=== PATIENT | male | born 1995 | race African-American/Black ===

== ENCOUNTER 2021-07-18 11:37 | Emergency (ER) | payer OTHER ==
[~2021-07-18] VITALS: Ht 188 cm; Wt 100.2 kg
[2021-07-18] MEDS ORDERED: LIDOCAINE 5% (LIDODERM) PATCH TD ONE (14:20)
[2021-07-18] MEDS ORDERED: ACETAMINOPHEN 500 MG TAB PO ONE (14:20)
[2021-07-18] MEDS ORDERED: KETOROLAC 30 MG/ML 1ML VIAL IM ONE (14:20)
--- NOTE | 2021-07-18 15:02 | REP ---
INDICATION: L and mid low back pain s/p lifting. COMPARISON: None. TECHNIQUE: Six views of the lumbar spine are provided. FINDINGS: Lumbar vertebral body heights are preserved. Alignment is normal. No fracture or collapse is seen. Disc spaces are maintained. Pedicles and posterior elements are intact. There is no evidence of spondylolysis or spondylolisthesis. Psoas margins are symmetric. Sacrum and SI joints are intact. IMPRESSION: Negative lumbar spine radiographs. <Electronically signed by Olivier Garza > 07/18/21 [id number]
[2021-07-18 15:04] LABS: APPEARANCE, URINE CLEAR (CLEAR); BACTERIA, URINE AUTO NEGATIVE (NEGATIVE); BILIRUBIN, URINE AUTO NEGATIVE (NEGATIVE); BLOOD, URINE BLOOD NEGATIVE (NEGATIVE); COLOR, URINE YELLOW (YELLOW); GLUCOSE, URINE (UA) AUTO NEGATIVE (NEGATIVE); KETONE, URINE AUTO NEGATIVE (NEGATIVE); LEUKOCYTE ESTERASE, URINE AUTO NEGATIVE (NEGATIVE); MUCUS, URINE SMALL (NEGATIVE); NITRITE, URINE AUTO NEGATIVE (NEGATIVE); PROTEIN, URINE AUTO NEGATIVE (NEGATIVE); RBC, URINE AUTO 1 /HPF (0-3); SPECIFIC GRAVITY URINE AUTO 1.015 (1.002-1.035); SQUAMOUS EPITHELIAL CELL UR AU 0 /HPF (0-6); WBC, URINE AUTO 1 /HPF (0-3)
[2021-07-18] MEDS ORDERED: CYCL5TAB PO (15:23)
[2021-07-18] MEDS ORDERED: LIDO5DIS41 TOP (15:23)
[2021-07-18] MEDS ORDERED: IBUP80TA PO (15:26)
[2021-07-18 15:34] VITALS: BP 133/67
[2021-07-18] MEDS ORDERED: **NOTE PATIENT COMMENT** MISC XX SCH (21:00)
== END 2021-07-18 15:35 | disposition home or self-care (01) ==
LOC: M ED 11:37
DX: S39.012A Strain of muscle, fascia and tendon of lower back, initial encounter (principal); M62.830 Muscle spasm of back; M54.5 Low back pain; X50.0XXA Overexertion from strenuous movement or load, initial encounter; Y92.9 Unspecified place or not applicable; Y93.89 Activity, other specified; Y99.1 Military activity
CPT/HCPCS: 72110; 81001; 96372; 99283; J1885